=== PATIENT | female | born 1970 | race African-American/Black ===

== ENCOUNTER 2019-11-08 16:33 | Emergency (ER) | payer OTHER ==
[~2019-11-08] VITALS: Ht 170.2 cm; Wt 79.4 kg
[2019-11-08] MEDS ORDERED: NAPROXEN SODIU550 MG PO (16:52)
[2019-11-08] MEDS ORDERED: AMOX-CLAV 875-1 EACH PO (16:52)
== END 2019-11-08 18:27 | disposition home or self-care (01) ==
LOC: ER 16:33
DX: I82.812 Embolism and thrombosis of superficial veins of left lower extremity (principal)

== ENCOUNTER 2020-10-11 07:49 | Outpatient (CLI) | payer OTHER ==
[~2020-10-11 07:49] MED LIST: AMOX-CLAV 875-1 EACH PO; NAPROXEN SODIU550 MG PO
== END 2020-10-11 13:41 | disposition home or self-care (01) ==
LOC: TOM 07:49
PROVIDERS: ATTEND Internal Medicine Hematology & Oncology
DX: N92.0 Excessive and frequent menstruation with regular cycle (principal); D50.0 Iron deficiency anemia secondary to blood loss (chronic); I83.899 Varicose veins of unspecified lower extremity with other complications; D25.9 Leiomyoma of uterus, unspecified; E04.2 Nontoxic multinodular goiter

== ENCOUNTER 2020-10-11 09:48 | Outpatient (CLI) | payer OTHER | END 2020-10-11 10:03 | disposition home or self-care (01) | LOC: SONOGRAMA 09:48 | PROVIDERS: ATTEND Pathology Anatomic Pathology & Clinical Pathology | DX: E04.2 Nontoxic multinodular goiter (principal) ==

== ENCOUNTER → 2022-04-07 08:16 | Outpatient (CLI) | payer OTHER | END | disposition home or self-care (01) | LOC: LAB 08:16 | PROVIDERS: ATTEND Internal Medicine Hematology & Oncology | DX: D50.8 Other iron deficiency anemias (principal); I10 Essential (primary) hypertension; R74.02 Elevation of levels of lactic acid dehydrogenase [LDH]; K76.89 Other specified diseases of liver; D63.8 Anemia in other chronic diseases classified elsewhere; D51.1 Vitamin B12 deficiency anemia due to selective vitamin B12 malabsorption with proteinuria; D51.0 Vitamin B12 deficiency anemia due to intrinsic factor deficiency; E03.8 Other specified hypothyroidism; E06.3 Autoimmune thyroiditis; C56.9 Malignant neoplasm of unspecified ovary; R97.8 Other abnormal tumor markers; R97.1 Elevated cancer antigen 125 [CA 125]; R97.0 Elevated carcinoembryonic antigen [CEA]; D50.0 Iron deficiency anemia secondary to blood loss (chronic); N92.0 Excessive and frequent menstruation with regular cycle; D25.9 Leiomyoma of uterus, unspecified; E04.2 Nontoxic multinodular goiter ==